=== PATIENT | male | born 1990 | race Caucasian/White ===

== ENCOUNTER 2021-08-25 02:16 | Outpatient (CLI) | payer MEDICAID | END 2021-08-25 02:17 | disposition critical access hospital (66) | LOC: EMS 02:16 | DX: R06.09 Other forms of dyspnea (principal) | CPT/HCPCS: A0425; A0427; A0999 ==

== ENCOUNTER 2021-08-25 02:34 | Emergency (ER) | payer MEDICAID ==
--- NOTE | 2021-08-25 03:17 | ED Physician Documentation ---
PD HPI DYSPNEA - Stated complaint Stated Complaint: SOA - Chief complaint Chief Complaint: Resp - History obtained from History obtained from: Patient - History of Present Illness Timing - onset: Enter time (00:00 (midnight)), Today Timing - onset during: Rest Timing - details: Gradual onset Pain level max: 0 Pain level now: 0 Improved by: Inhaler/neb, Rest Worsened by: Exertion Associated symptoms: Cough, Wheezing. No: Fever, Chest pain / discomfort Similar symptoms before: Diagnosis (asthma) Recently seen: Not recently seen - Additional information Additional information: BIBA. Patient c/o dyspnea, wheezing , onset while at rest around midnight tonight and consistent with his previous exacerbations of asthma. He does not have an inhaler due to symptoms being too sparse to require regular/consistent refills on his albuterol MDI. He is given duoneb by medics en route with improvement. He also had post-tussive emesis en route, given zofran en route by medics, as well. Review of Systems Constitutional: reports: Reviewed and negative Cardiac: reports: Reviewed and negative Respiratory: reports: Dyspnea, Cough, Wheezing. denies: Hemoptysis GI: reports: Vomiting (post-tussive). denies: Abdominal Pain, Nausea PD PAST MEDICAL HISTORY - Past Medical History Past Medical History: Yes Respiratory: Asthma - Present Medications Home Medications: Ambulatory Orders Medication Instructions Recorded Confirmed Albuterol Sulf [Ventolin Hfa 1 - 2 puffs INH Q4HR PRN #1 inhaler 08/25/21 Inhaler] Ondansetron Odt [Zofran] 4 mg TL Q6H PRN #10 tablet 08/25/21 predniSONE [Deltasone] 40 mg PO DAILY 4 Days #8 tablet 08/25/21 - Allergies Allergies/Adverse Reactions: Allergies Allergy/AdvReac Type Severity Reaction Status Date / Time No Known Drug Allergies Allergy Verified 08/25/21 02:41 PD ED PE NORMAL - Vitals Vital signs reviewed: Yes - General General: Alert and oriented X 3, No acute distress, Well developed/nourished - HEENT HEENT: Moist mucous membranes - Cardiac Cardiac: RRR, No murmur, No gallop, No rub - Respiratory Respiratory: No respiratory distress, Other (good air flow bilaterally; bilateral expiratory wheezing) Results - Vitals Vitals: Oxygen O2 Source Room air PD MEDICAL DECISION MAKING - ED course Complexity details: considered differential, d/w patient ED course: given albuterol neb for residual wheezing, as well as 125mg IV solu-medrol. On reevaluation, he has residual end-expiratory wheezing which is improved compared to when he first arrived. Departure - Departure Disposition: 01 Home, Self Care Clinical Impression: Asthma Condition: Good Instructions: ED Reactive Airway Disease Prescriptions: Albuterol Sulf [Ventolin Hfa Inhaler] 1 - 2 puffs INH Q4HR PRN #1 inhaler PRN Reason: Shortness Of Air/Wheezing predniSONE [Deltasone] 40 mg PO DAILY 4 Days #8 tablet Ondansetron Odt [Zofran] 4 mg TL Q6H PRN #10 tablet PRN Reason: Nausea / Vomiting Discharge Date/Time: 08/25/21 04:15
[2021-08-25] MEDS ORDERED: methylPREDNISolone SUCCINATE 125 MG/2 ML VIAL IVP STA (03:44)
[2021-08-25] MEDS ORDERED: ONDANSETRON ODT 4 MG Prepack 2 TL PRN (03:44)
[2021-08-25] MEDS ORDERED: ALBUTEROL NEB 2.5 MG/3 ML INH STA (03:44)
[2021-08-25 04:15] VITALS: BP 136/72
== END 2021-08-25 04:15 | disposition home or self-care (01) ==
LOC: ED 02:34
DX: J45.909 Unspecified asthma, uncomplicated (principal)
CPT/HCPCS: 94640; 94664; 96374; 99284